=== PATIENT | male | born 1995 ===

== ENCOUNTER 2017-07-08 18:41 | Emergency (ER) | payer SELFPAY ==
[~2017-07-08] VITALS: Ht 180.3 cm; Wt 100.0 kg
[2017-07-08 18:45] VITALS: BP 119/72; PULSE 82; RESP 16; TEMP 98.3; O2SAT 99
--- NOTE | 2017-07-08 19:14 | PD ---
HPI Chief Complaint: Musculoskeletal Complaint Time Seen by Provider: 18:54 Travel History International Travel<30 days: No Contact w/Intl Traveler<30days: No Traveled to known affect area: No History of Present Illness HPI Patient is a 22-year-old male presenting to the emergency department for evaluation of left anterior chest wall pain. Patient states that sometimes it hurt on the inside, this is been ongoing for years. Today it started hurting when he pressed on the outside. He denies any cough, shortness of breath, fever , chills, injury. He states his pain is a 5 out of 10. Patient symptom onset was gradual, there are no alleviating or exacerbating factors. Symptoms are mild in nature. Patient denies any medical history. He denies abdominal pain, nausea, vomiting, fever, chills. PFSH Past Medical History Medical History: Denies Significant Hx Social History Alcohol Use: No Tobacco Use: No Allergies-Medications (Allergen,Severity, Reaction): Coded Allergies: No Known Allergies (Unverified , 06/29/14) Reported Meds & Prescriptions Reported Meds & Active Scripts Active Ventolin Hfa 18 GM Inh (Albuterol Sulfate) 90 Mcg/Act Aer 2 Puff INH Q4-6H PRN Ibuprofen 800 Mg Tab 800 Mg PO Q6HR PRN Review of Systems Except as stated in HPI: all other systems reviewed are Neg Respiratory: Positive: Pleuritic Pain Physical Exam Narrative GENERAL: Well-developed, well-nourished, alert male. Presenting in no acute distress. SKIN: Warm and dry. No rash or obvious lesions. HEAD: Normocephalic. EYES: No scleral icterus. No injection or drainage. NECK: Supple, trachea midline. No JVD or lymphadenopathy. CARDIOVASCULAR: Regular rate and rhythm without murmurs, gallops, or rubs. Scattered expiratory wheezes on the right lower lobe RESPIRATORY: Breath sounds equal bilaterally. No accessory muscle use. GASTROINTESTINAL: Abdomen soft, non-tender, nondistended. MUSCULOSKELETAL: No cyanosis, or edema. Mild tenderness palpation right anterior chest wall. BACK: Nontender without obvious deformity. No CVA tenderness. Data Data Last Documented VS Vital Signs Date Time Temp Pulse Resp B/P (MAP) Pulse Ox O2 Delivery O2 Flow Rate FiO2 07/08/17 18:45 98.3 82 16 119/72 (88) 99 Orders Orders Chest, Pa & Lat (3/4/18 ) Ed Discharge Order (07/08/17 19:49) MDM Medical Decision Making Medical Screen Exam Complete: Yes Emergency Medical Condition: Yes Interpretation(s) Vital Signs Date Time Temp Pulse Resp B/P (MAP) Pulse Ox O2 Delivery O2 Flow Rate FiO2 07/08/17 18:45 98.3 82 16 119/72 (88) 99 Differential Diagnosis Bronchitis versus asthma exacerbation versus pneumonia versus pleurisy versus costochondritis versus other Narrative Course Patient is a 22-year-old male presenting to emergency for evaluation of pleuritic chest pain medicine ongoing for years. Patient's vital signs are stable, he had expiratory wheezing on exam, he does report a history of asthma with cold weather. Chest x-ray shows no acute disease. Patient was encouraged to ibuprofen as needed and as directed for pain. He was encouraged to follow- up with his primary doctor return to emergency department for any new or worsening symptoms. Patient verbalized understanding of instructions. Patient stable for discharge. Patient asked to speak to charge nurse because he felt as if he wasn't getting proper care due to lack of insurance benefits. Discussed with patient that he has had ongoing pain for months. He reported that he presented today because it hurt when he pressed on his anterior ribs. Reassured patient that there was no acute findings at this time. Also advised patient that his lack of benefits had no bearing on plan of care as I was unaware he had no benefits. Came verbally abusive, he used foul language and told me to get out of his room. Security and charge nurse was called to further handle situation. Diagnosis Primary Impression: Costochondritis Referrals: [facility] Primary Care Physician Patient Instructions: Costochondritis (ED), General Instructions Additional Instructions: Take medication as needed and as directed for pain Follow-up with her primary doctor Return to emergency department for any new or worsening symptoms Med/Other Pt SpecificInfo: Prescription(s) given Scripts Albuterol 18 GM Inh (Ventolin Hfa 18 GM Inh) 90 Mcg/Act Aer 2 PUFF INH Q4-6H Y for SHORTNESS OF BREATH, #1 INHALER 0 Refills Prov: Lisa Davis 07/08/17 Ibuprofen (Ibuprofen) 800 Mg Tab 800 MG PO Q6HR Y for PAIN, #40 TAB 0 Refills Prov: Lisa Davis 07/08/17 Disposition: 01 DISCHARGE HOME Condition: Stable Lisa Davis Jul 08, 2017 19:14
--- NOTE | 2017-07-08 19:41 | RADRPT ---
EXAM DATE/TIME: 07/08/2017 19:20 [facility] COMPARISON: No previous studies available for comparison. INDICATIONS : Right sided axillary pain. MEDICAL HISTORY : None. SURGICAL HISTORY : None. ENCOUNTER: Initial ACUITY: >1 year PAIN SCORE: 6/10 LOCATION: Right axillary. FINDINGS: PA and lateral views of the chest demonstrate the lungs to be symmetrically aerated without evidence of mass, infiltrate or effusion. The cardiomediastinal contours are unremarkable. Osseous structure s are intact. CONCLUSION: No acute disease. Raymond Enriquez MD on July 08, 2017 at 19:39 Board Certified Radiologist. This report was verified electronically.
[2017-07-08] MEDS ORDERED: VENTAER INH (19:47)
[2017-07-08] MEDS ORDERED: IBUP1TAB7 PO (19:47)
== END 2017-07-08 20:25 | disposition home or self-care (01) ==
LOC: NEPE 18:41
DX: M94.0 Chondrocostal junction syndrome [Tietze] (principal)
CPT/HCPCS: 71046; 99283